=== PATIENT | male | born 1950 | race Caucasian/White ===

== ENCOUNTER → 2017-06-02 | Outpatient (CLI) | payer OTHER ==
--- NOTE | 2017-06-02 13:48 | DIAGNOSTIC IMAGING REPORT ---
CHEST 2 VIEWS ROUTINE CLINICAL HISTORY: COUGH COMPARISON STUDY: Outside chest CT dated 12/03/2016 FINDINGS: The cardiac and mediastinal contours are normal. There is no focal pulmonary consolidation. There is no failure. There are no pleural effusions. An opacity at the left cardiophrenic angle is felt to represent a fat pad.[ IMPRESSION: No active disease in the chest. Electronically signed by: Otto Jaquez M.D. 06/02/2017 1:46 PM Dictated Date/Time: 06/02/2017 1:46 PM
== END | disposition home or self-care (01) ==
LOC: C.RAD1850 13:35
PROVIDERS: ATTEND Physician Assistant
DX: R05 Cough (principal)